=== PATIENT | male | born 1965 | race Caucasian/White ===

== ENCOUNTER 2017-07-06 20:22 | Emergency (ER) | payer OTHER ==
[~2017-07-06] VITALS: Ht 175.3 cm; Wt 70.0 kg
[~2017-07-06 20:22] MED LIST: LEVE750T37 PO
[2017-07-07 01:02] VITALS: BP 128/67
== END 2017-07-07 01:05 | disposition left against medical advice (07) ==
LOC: ED 22:08
DX: F10.120 Alcohol abuse with intoxication, uncomplicated (principal); Y90.9 Presence of alcohol in blood, level not specified
CPT/HCPCS: 99283

== ENCOUNTER 2017-07-09 22:13 | Emergency (ER) | payer SELFPAY ==
[~2017-07-09] VITALS: Ht 177.8 cm; Wt 87.0 kg
[2017-07-09 22:55] VITALS: BP 122/76
== END 2017-07-10 01:07 | disposition left against medical advice (07) ==
LOC: ED 07-10 01:05
DX: R56.9 Unspecified convulsions (principal); Z53.21 Procedure and treatment not carried out due to patient leaving prior to being seen by health care provider

== ENCOUNTER 2017-07-24 07:07 | Observation (INO) | payer MEDICARE, OTHER ==
[~2017-07-24] VITALS: Ht 175.3 cm; Wt 86.0 kg
[2017-07-24] MEDS ORDERED: LEVETIRACETAM 500 MG TABLET PO ONE (08:00)
[2017-07-24 08:12] LABS: BASOPHILS # (AUTO) 0.03 x10^3/uL (0-0.1); BASOPHILS % (AUTO) 1 % (0-1); EOSINOPHILS # (AUTO) 0.05 x10^3/uL (0-0.4); EOSINOPHILS % (AUTO) 1 % (1-7); LYMPHOCYTES % (AUTO) 26 % (22-44); MD NO; MEAN CORPUSCULAR HEMOGLOBIN 32.3 pg (27.5-34.5); MEAN CORPUSCULAR HGB CONC 34.3 g/dL (33.2-36.2); MEAN CORPUSCULAR VOLUME 94.3 fL (81-97); MEAN PLATELET VOLUME 8.3 fL (7.4-10.4); MONOCYTES % (AUTO) 11 % (2-9); NEUTROPHILS # (AUTO) 3.33 x10^3/uL (1.8-6.8); NEUTROPHILS % (AUTO) 62 % (42-75); PLATELET COUNT 218 x10^3/uL (130-400); RED CELL DISTRIBUTION WIDTH 13.6 % (9.4-14.8)
[2017-07-24 08:23] LABS: ALANINE AMINOTRANSFERASE 32 U/L (12-78); ALBUMIN 3.5 g/dL (3.4-5.0); ANION GAP 7 mmol/L (5-15); CALCIUM 7.9 mg/dL (8.5-10.1); CHLORIDE 104 mmol/L (98-107); CREATININE 0.87 mg/dL (0.7-1.3)
[2017-07-24 08:24] LABS: SALICYLATE LEVEL < 1.7 mg/dL (2.8-20.0)
[2017-07-24 08:24] LABS: AMPHETAMINE SCREEN, URINE Negative (Negative); BARBITURATE SCREEN, URINE Negative (Negative); BENZODIAZEPINE SCREEN, URINE Positive (Negative); CANNABINOID SCREEN, URINE Positive (Negative); COCAINE SCREEN, URINE Negative (Negative); METHADONE SCREEN, URINE Negative (Negative); OPIATE SCREEN, URINE Negative (Negative)
[2017-07-24 08:26] LABS: ALKALINE PHOSPHATASE 75 U/L (45-117); BILIRUBIN,TOTAL 1.2 mg/dL (0.2-1.0); TOTAL PROTEIN 6.8 g/dL (6.4-8.2)
[2017-07-24 08:27] LABS: ACETAMINOPHEN < 2 mcg/mL (10-30)
[2017-07-24] MEDS ORDERED: PLEASE ENTER ALLERGIES MC SCH (08:30)
[2017-07-24 20:00] VITALS: BP 132/76
[2017-07-24] MEDS: LEVETIRACETAM 500 MG TABLET PO SCH (20:10)
[2017-07-25 07:55] VITALS: BP 131/80
[2017-07-25] MEDS: LEVETIRACETAM 500 MG TABLET PO SCH ×2 (08:25→20:24)
[2017-07-25 19:59] VITALS: BP 132/76
[2017-07-25] MEDS: ACETAMINOPHEN 325 MG TABLET PO PRN (20:24)
[2017-07-26 08:00] VITALS: BP 132/83
[2017-07-26] MEDS: LEVETIRACETAM 500 MG TABLET PO SCH ×2 (08:14→20:15)
[2017-07-26] MEDS ORDERED: PSEUDOEPHEDRINE 30 MG TABLET PO SCH (10:00)
[2017-07-26] MEDS: PSEUDOEPHEDRINE 30 MG TABLET PO PRN (10:39)
[2017-07-26] MEDS: ACETAMINOPHEN 325 MG TABLET PO PRN ×2 (10:43→20:15)
[2017-07-26 19:46] VITALS: BP 116/71
[2017-07-27] MEDS: ACETAMINOPHEN 325 MG TABLET PO PRN ×2 (00:22→20:15)
[2017-07-27] MEDS: PSEUDOEPHEDRINE 30 MG TABLET PO PRN (00:23)
[2017-07-27 08:00] VITALS: BP 110/71
[2017-07-27] MEDS: LEVETIRACETAM 500 MG TABLET PO SCH ×2 (08:29→20:14)
[2017-07-27 19:26] VITALS: BP 136/88
[2017-07-28 08:00] VITALS: BP 125/79
[2017-07-28] MEDS: ACETAMINOPHEN 325 MG TABLET PO PRN (09:10)
[2017-07-28] MEDS: LEVETIRACETAM 500 MG TABLET PO SCH ×2 (09:10→20:20)
[2017-07-28] MEDS: PSEUDOEPHEDRINE 30 MG TABLET PO PRN (14:48)
[2017-07-28 20:02] VITALS: BP 123/68
[2017-07-29 08:04] VITALS: BP 135/87
[2017-07-29] MEDS: LEVETIRACETAM 500 MG TABLET PO SCH ×2 (08:21→21:35)
[2017-07-29] MEDS: PSEUDOEPHEDRINE 30 MG TABLET PO PRN (08:39)
[2017-07-29 19:34] VITALS: BP 123/73
[2017-07-29] MEDS: ACETAMINOPHEN 325 MG TABLET PO PRN (21:36)
[2017-07-30 08:00] VITALS: BP 136/88
[2017-07-30] MEDS: PSEUDOEPHEDRINE 30 MG TABLET PO PRN (08:20)
[2017-07-30] MEDS: ACETAMINOPHEN 325 MG TABLET PO PRN ×2 (08:21→21:35)
[2017-07-30] MEDS: LEVETIRACETAM 500 MG TABLET PO SCH ×2 (08:21→21:35)
[2017-07-30 20:02] VITALS: BP 124/75
[2017-07-31 07:39] VITALS: BP 113/71
[2017-07-31] MEDS: LEVETIRACETAM 500 MG TABLET PO SCH ×2 (08:07→20:47)
[2017-07-31 20:08] VITALS: BP 111/76
[2017-07-31] MEDS: ACETAMINOPHEN 325 MG TABLET PO PRN (20:50)
[2017-08-01 07:15] VITALS: BP 115/74
[2017-08-01] MEDS: LEVETIRACETAM 500 MG TABLET PO SCH ×2 (08:38→20:10)
[2017-08-01 20:07] VITALS: BP 133/82
[2017-08-02 08:17] VITALS: BP 123/78
[2017-08-02] MEDS: LEVETIRACETAM 500 MG TABLET PO SCH ×2 (08:39→20:38)
[2017-08-02 19:25] VITALS: BP 112/71
[2017-08-03 07:30] VITALS: BP 108/68
[2017-08-03] MEDS: LEVETIRACETAM 500 MG TABLET PO SCH ×2 (09:39→20:26)
[2017-08-03 19:44] VITALS: BP 119/76
[2017-08-04 07:23] VITALS: BP 105/67
[2017-08-04] MEDS: LEVETIRACETAM 500 MG TABLET PO SCH ×2 (08:13→21:17)
[2017-08-04 19:26] VITALS: BP 121/77
[2017-08-05 07:10] VITALS: BP 108/62
[2017-08-05] MEDS: LEVETIRACETAM 500 MG TABLET PO SCH ×2 (08:29→20:22)
[2017-08-05 19:32] VITALS: BP 103/63
[2017-08-06 07:25] VITALS: BP 102/61
[2017-08-06] MEDS: LEVETIRACETAM 500 MG TABLET PO SCH (08:09)
[2017-08-06] MEDS ORDERED: PSEU30TA24 PO (10:50)
[2017-08-06] MEDS ORDERED: LEVE500T53 PO (10:50)
== END 2017-08-06 11:30 ==
LOC: ED 08:57 → EDIP 12:09 → EDUNIT# 12:09 → INTOOBSV 13:16 → OBSVTOIN 13:16 → 2N 14:44
PROVIDERS: ADMIT Family Medicine; ATTEND Hospitalist
DX: R45.851 Suicidal ideations (principal); G40.909 Epilepsy, unspecified, not intractable, without status epilepticus; F12.90 Cannabis use, unspecified, uncomplicated; Z59.0 Homelessness
CPT/HCPCS: 36415; 80053; 80307; 80329; 85025; 99285; G0378; G0480

== ENCOUNTER 2017-09-01 19:51 | Emergency (ER) | payer MEDICAID, OTHER ==
[~2017-09-01] VITALS: Ht 175.3 cm; Wt 89.0 kg
[~2017-09-01 19:51] MED LIST changes: +LEVE500T53 PO; +PSEU30TA24 PO
[2017-09-01 19:59] VITALS: BP 116/78
[2017-09-01] MEDS ORDERED: LEVETIRACETAM 1,000 MG in SODIUM CHLORIDE 0.9% 100 ML IV ONE (20:30)
[2017-09-01] MEDS ORDERED: LEVETIRACETAM 500 MG TABLET PO ONE (21:00)
== END 2017-09-01 21:32 | disposition home or self-care (01) ==
LOC: ED 21:26
DX: R56.9 Unspecified convulsions (principal); G40.909 Epilepsy, unspecified, not intractable, without status epilepticus; F10.10 Alcohol abuse, uncomplicated
CPT/HCPCS: 99283

== ENCOUNTER 2017-09-06 14:40 | Emergency (ER) | payer MEDICAID ==
[~2017-09-06] VITALS: Ht 170.2 cm; Wt 80.0 kg
[2017-09-06] MEDS ORDERED: SODIUM CHLORIDE 0.9% 1,000ML IVBOLUS ONE (15:00)
[2017-09-06] MEDS ORDERED: LEVETIRACETAM 1,000 MG in SODIUM CHLORIDE 0.9% 100 ML IV ONE (15:00)
[2017-09-06] MEDS ORDERED: KETOROLAC 30 MG/1 ML IVPush ONE (15:00)
[2017-09-06] MEDS ORDERED: METOCLOPRAMIDE 5 MG/ML, 2ML IVPush ONE (15:00)
[2017-09-06] MEDS ORDERED: SODIUM CHLORIDE FLUSH 10ML SYR IVF ONE (15:00)
[2017-09-06] MEDS ORDERED: METOCLOPRAMIDE 5 MG/ML, 2ML ONE (15:03)
[2017-09-06] MEDS ORDERED: KETOROLAC 30 MG/1 ML ONE (15:03)
[2017-09-06 16:18] VITALS: BP 144/93
== END 2017-09-06 16:27 | disposition home or self-care (01) ==
LOC: ED 16:21
DX: G40.909 Epilepsy, unspecified, not intractable, without status epilepticus (principal); R51 Headache; Z72.9 Problem related to lifestyle, unspecified; Z91.14 Patient's other noncompliance with medication regimen
CPT/HCPCS: 96365; 96375; 99284; J1885; J1953; J2765; J7030

== ENCOUNTER 2017-09-28 22:07 | Emergency (ER) | payer MEDICAID ==
[~2017-09-28] VITALS: Ht 175.3 cm; Wt 86.9 kg
[2017-09-28 22:16] VITALS: BP 142/100
== END 2017-09-28 23:20 | disposition home or self-care (01) ==
LOC: ED 23:00
DX: G40.909 Epilepsy, unspecified, not intractable, without status epilepticus (principal)
CPT/HCPCS: 99283